=== PATIENT | female | born 1995 | race American Indian/Alaskan Native ===

== ENCOUNTER 2020-06-03 10:47 | Emergency (ER) | payer BC ==
--- NOTE | 2020-06-03 11:36 | XRay Report ---
CHEST 2 VIEWS 1120 INDICATION / CLINICAL INFORMATION: Dyspnea COMPARISON: None available. FINDINGS: SUPPORT DEVICES: None. HEART / MEDIASTINUM: No significant abnormality. LUNGS / PLEURA: Posterior costophrenic angles are not fully included on the lateral projection. Lung velazquez appear clear. No pneumothorax. ADDITIONAL FINDINGS: No significant additional findings. IMPRESSION: No significant acute abnormality Signer Name: Gino Petersen MD Signed: 06/03/2020 11:32 AM Workstation Name: [id number]
[2020-06-03 12:15] LABS: Basophils # (Auto) 0.1 K/mm3 (0.0-0.1); Basophils % (Auto) 1.5 % (0.0-1.8); Eosinophils # (Auto) 0.1 K/mm3 (0.0-0.4); Eosinophils % (Auto) 1.3 % (0.0-4.3); Lymphocytes # (Auto) 1.8 K/mm3 (1.2-5.4); Lymphocytes % (Auto) 33.2 % (13.4-35.0); Mean Corpuscular HGB Conc 29 % (30-34); Monocytes # (Auto) 0.6 K/mm3 (0.0-0.8); Monocytes % (Auto) 10.4 % (0.0-7.3); Platelet Count 428 K/mm3 (140-440); Red Blood Count 4.58 M/mm3 (3.65-5.03)
[2020-06-03 12:21] LABS: Hematocrit 27.6 % (30.3-42.9); Mean Corpuscular Volume 60 fl (79-97)
[2020-06-03 12:22] LABS: Red Cell Distribution Width 20.3 % (13.2-15.2)
[2020-06-03 12:33] LABS: Alanine Aminotransferase 43 units/L (7-56); Albumin 4.3 g/dL (3.9-5); Blood Urea Nitrogen 4 mg/dL (7-17); Calcium 9.8 mg/dL (8.4-10.2); Hemolysis Index 3
[2020-06-03 12:34] LABS: BUN/Creatinine Ratio 7
[2020-06-03] MEDS ORDERED: IBUPROFEN 600 MG TAB PO ONE (13:14)
[2020-06-03] MEDS ORDERED: ACETAMINOPHEN 325 MG TAB PO ONE (13:14)
--- NOTE | 2020-06-03 13:14 | Emergency Department Report ---
ED General Adult HPI - General Chief complaint: Dyspnea/Respdistress Stated complaint: SOB/NAUSEA/HEADACHES PUI?: Yes Time Seen by Provider: 06/03/20 12:55 Source: patient, RN notes reviewed Mode of arrival: Ambulatory Limitations: No Limitations - History of Present Illness Initial comments: The patient was evaluated in the emergency department for symptoms described in the history of present illness. He/she was evaluated in the context of the global COVID-19 pandemic, which necessitated consideration that the patient migh t be at risk for infection with the virus that causes COVID-19. Institutional protocols and algorithms that pertain to the evaluation of patients at risk for COVID-19 are in a state of rapid change based on information released by regulatory bodies including the CDC and federal and state organizations. These policies and algorithms were followed during the patient's care in the emergency department. Please note that these policies, procedures and recommendations changed on a rapid basis. The patient is a pleasant 24-year-old female. She is not known to myself previously. She reports a prior history of anemia, and is noncompliant with iron supplementation. She also reports a possible history of diabetes. The patient presents to the ER today with a complaint of nontraumatic frontal and bitemporal headache, nasal congestion, sneezing, history of shortness of breath last night, now resolved. The headache is not sudden or thunderclap in nature. The headache is not maximal in intensity. Patient taking ibuprofen 200 mg orally, as needed. There is no loss of vision, there is no sore throat, there is positive dry cough, there is no loss of taste, no loss of smell, no chest pain, no abdominal pain, at the moment, she does not have shortness of breath, she denies hematemesis, bright red blood per rectum, heavy menstruation, DVT, pulmonary embolism risk factors. She has not been entirely compliant with self-isolation and self quarantining, and occasionally, but not always, wears a mask when she is outside. Shortness of breath present last night, now resolved, and is not present at this time. -: days(s) Location: head Quality: other Consistency: other Improves with: other Worsens with: other Associated Symptoms: other - Related Data Allergies Allergy/AdvReac Type Severity Reaction Status Date / Time No Known Allergies Allergy Unverified 06/03/20 10:57 ED Review of Systems ROS: Stated complaint: SOB/NAUSEA/HEADACHES Other details as noted in HPI Constitutional: denies: fever Eyes: denies: eye discharge, vision change ENT: denies: epistaxis Respiratory: cough, shortness of breath Cardiovascular: denies: chest pain Genitourinary: denies: dysuria Musculoskeletal: denies: myalgia Neurological: headache. denies: weakness Hematological/Lymphatic: denies: easy bleeding ED Past Medical Hx - Past Medical History Previous Medical History?: Yes Hx Diabetes: Yes - Surgical History Past Surgical History?: No - Social History Smoking Status: Never Smoker Substance Use Type: None ED Physical Exam - General Limitations: No Limitations General appearance: alert, in no apparent distress - Head Head exam: Present: atraumatic, normocephalic - Eye Eye exam: Present: normal appearance, PERRL, EOMI, other (Visual acuity intact to finger counting, color perception, reading at a close distance). Absent: nystagmus - ENT ENT exam: Present: normal exam, normal orophraynx, mucous membranes moist, normal external ear exam - Neck Neck exam: Present: normal inspection, full ROM. Absent: tenderness, meningismus - Respiratory Respiratory exam: Present: normal lung sounds bilaterally. Absent: respiratory distress, wheezes, rales, rhonchi, stridor, decreased breath sounds - Cardiovascular Cardiovascular Exam: Present: regular rate, normal rhythm, normal heart sounds. Absent: bradycardia, tachycardia, irregular rhythm, systolic murmur, diastolic murmur, rubs, gallop - GI/Abdominal GI/Abdominal exam: Present: soft. Absent: distended, tenderness, guarding, rebound, rigid, pulsatile mass - Extremities Exam Extremities exam: Present: normal inspection, full ROM, other (2+ pulses noted in the bilateral upper and lower extremities. There is no palpable cord. negative Homans sign. Muscular compartments are soft. The pelvis is stable.). Absent: pedal edema, calf tenderness - Back Exam Back exam: Present: normal inspection, full ROM. Absent: tenderness, CVA tenderness (R), CVA tenderness (L), paraspinal tenderness, vertebral tenderness - Neurological Exam Neurological exam: Present: alert, oriented X3, normal gait, other (There is no facial droop. The tongue is midline. Extraocular movements are intact bilaterally. There is 5 out of 5 strength in bilateral upper and lower extremities. Sensation is intact to light touch bilateral upper and lower extremities. There is no past-pointing. There is no pronator drift. There is normal nmbs-vd-hyca. There is a normal gait.). Absent: motor sensory deficit - Psychiatric Psychiatric exam: Present: normal affect, normal mood - Skin Skin exam: Present: warm, dry, intact, normal color. Absent: rash ED Course Vital Signs 06/03/20 06/03/20 10:54 13:34 Temperature 99.9 F H Pulse Rate 112 H 88 Respiratory 18 18 Rate Blood Pressure 153/94 Blood Pressure 130/70 [Left] O2 Sat by Pulse 100 100 Oximetry ED Medical Decision Making - Lab Data Result diagrams: 06/03/20 11:47 06/03/20 11:47 Vital Signs 06/03/20 06/03/20 10:54 13:34 Temperature 99.9 F H Pulse Rate 112 H 88 Respiratory 18 18 Rate Blood Pressure 153/94 Blood Pressure 130/70 [Left] O2 Sat by Pulse 100 100 Oximetry Lab Results 06/03/20 06/03/20 Range/Units 11:47 11:47 WBC 5.4 (4.5-11.0) K/mm3 RBC 4.58 (3.65-5.03) M/mm3 Hgb 8.0 L (10.1-14.3) gm/dl Hct 27.6 L (30.3-42.9) % MCV 60 L (79-97) fl MCH 18 L (28-32) pg MCHC 29 L (30-34) % RDW 20.3 H (13.2-15.2) % Plt Count 428 (140-440) K/mm3 Lymph % (Auto) 33.2 (13.4-35.0) % [place] % (Auto) 10.4 H (0.0-7.3) % Eos % (Auto) 1.3 (0.0-4.3) % Baso % (Auto) 1.5 (0.0-1.8) % Lymph # (Auto) 1.8 (1.2-5.4) K/mm3 [place] # (Auto) 0.6 (0.0-0.8) K/mm3 Eos # (Auto) 0.1 (0.0-0.4) K/mm3 Baso # (Auto) 0.1 (0.0-0.1) K/mm3 Seg Neutrophils % 53.6 (40.0-70.0) % Seg Neutrophils # 2.9 (1.8-7.7) K/mm3 Sodium 137 (137-145) mmol/L Potassium 4.5 (3.6-5.0) mmol/L Chloride 100.0 (98-107) mmol/L Carbon Dioxide 26 (22-30) mmol/L Anion Gap 16 mmol/L BUN 4 L (7-17) mg/dL Creatinine 0.6 (0.6-1.2) mg/dL Estimated GFR > 60 ml/min BUN/Creatinine Ratio 7 % Glucose 110 H (65-100) mg/dL Calcium 9.8 (8.4-10.2) mg/dL Total Bilirubin 0.40 (0.1-1.2) mg/dL AST 31 (5-40) units/L ALT 43 (7-56) units/L Alkaline Phosphatase 85 (35-129) units/L Total Protein 7.4 (6.3-8.2) g/dL Albumin 4.3 (3.9-5) g/dL Albumin/Globulin Ratio 1.4 % - Radiology Data Radiology results: report reviewed, image reviewed Print Report Referring Physician: ELISA KURTZ Patient Name: SILVER REYNOSO Date of : 1995 Sex: Female Report Date: 2020-06-03 Report Status: [place] [address] XRay Report Signed Patient: SILVER REYNOSO MR#: [id number] : 1995 Acct:[id number] Age/Sex: 24 / F ADM Date: 06/03/20 Loc: ED Attending Dr: Ordering Physician: ELISA KURTZ MD Date of Service: 06/03/20 Procedure(s): XR chest routine 2V Accession Number(s): [id number] cc: ED MD JERARDO Fluoro Time In Minutes: CHEST 2 VIEWS 1120 INDICATION / CLINICAL INFORMATION: Dyspnea COMPARISON: None available. FINDINGS: SUPPORT DEVICES: None. HEART / MEDIASTINUM: No significant abnormality. LUNGS / PLEURA: Posterior costophrenic angles are not fully included on the lateral projection. Lung velazquez appear clear. No pneumothorax. ADDITIONAL FINDINGS: No significant additional findings. IMPRESSION: No significant acute abnormality Signer Name: Gino Petersen MD Signed: 06/03/2020 11:32 AM Workstation Name: [id number] Transcribed By: GJ Dictated By: Gino Petersen MD Electronically Authenticated By: Gino Petersen MD Signed Date/Time: 06/03/20 113 DD/ 1131 TD/TT: - Medical Decision Making Differential diagnosis, include but not limited to: Sinusitis, allergies, rhinitis, migraine headache, tension headache, cluster headache, viral syndrome, COVID-19 Assessment and plan: 24-year-old female, with low-grade temperature, resolved elevated blood pressure, resolved tachycardia, who appears to be in no acute distress, walking with a steady gait, who is not currently tachycardic, tachypneic or hypoxic, who denies DVT, pulmonary embolism risk factors, who is low risk by Wells criteria, with a GCS of 15, NIH score of 0, no meningeal signs, with resolved shortness of breath, history of headache, runny nose, and sneezing. Patient states that she is not , and reports that she has not delivered or given in the past 6 weeks. Patient denies urinary symptoms, and reports a chronic history of anemia, and is noncompliant with outpatient therapy. Patient medicated appropriately for symptom control, other laboratory studies were sent prior to my personal evaluation, are fairly unremarkable except for asymptomatic anemia. 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 Patient verbalizes understanding to discharge instructions, and endorses that she was reliable to return with any change in her clinical condition patient endorses that she will take her medication at home for her chronic anemia after discussion. She indicates that she does not want an iron sulfate prescription in the emergency room. Critical care attestation.: If time is entered above; I have spent that time in minutes in the direct care of this critically ill patient, excluding procedure time. ED Disposition Clinical Impression: Suspected 2019 novel coronavirus infection Anemia Qualifiers: Anemia type: unspecified type Qualified Code(s): D64.9 - Anemia, unspecified Disposition: DC-01 TO HOME OR SELFCARE Is pt being admited?: No Does the pt Need Aspirin: No Condition: Stable Instructions: Anemia (ED), COVID-19 Additional Instructions: As we discussed, the patient most likely has novel coronavirus/COVID. the symptoms of COVID will typically persist 10 to 14 days. There is no cure at this time for COVID. Please make certain to self isolate and self quarantine, follow-up with an outpatient primary care doctor within the next 3 to 5 days, wash hands with soap and water frequently, thoroughly and often, patient may take the prescribed medications as needed and directed. Advance diet and drink plenty of fluids as tolerated. Avoid interactions with the very elderly, very young, and those with chronic medical conditions. Return to the emergency room right away with new pain, worsening pain, migration of pain, projectile vomiting, change in mental status, confusion, inability to tolerate liquid feeds, new, worsened or different symptoms not present on the initial emergency room evaluation. Referrals: ELIANA POLANCO MD [Staff Physician] - 3-5 Days JUANITA LOUISE MD [Staff Physician] - 3-5 Days Forms: Work/School Release Form(ED)
[2020-06-03 13:36] VITALS: BP 130/70
== END 2020-06-03 14:22 | disposition home or self-care (01) ==
LOC: ED 10:47
DX: D64.9 Anemia, unspecified (principal); Z20.828 Contact with and (suspected) exposure to other viral communicable diseases; E11.9 Type 2 diabetes mellitus without complications
CPT/HCPCS: 36415; 71046; 80053; 85025; 99283

== ENCOUNTER 2020-10-03 12:13 | Outpatient (CLI) | payer BC ==
[2020-10-03 13:14] LABS: Chol/HDL Ratio 4.12 %
[2020-10-03 13:25] LABS: Hepatitis B Surface Antigen Non-Reactive (Negative); Hepatitis C Virus Antibody Non-Reactive (NonReactive)
[2020-10-05 15:20] LABS: HSV 1 IgG Type-Specific Ab 47.3 Index (<0.90); HSV 2 IgG Type-Specific Ab 2.22 Index (<0.90)
== END 2020-10-03 12:14 | disposition home or self-care (01) ==
LOC: LAB 12:13
PROVIDERS: ATTEND Advanced Practice Midwife
DX: Z01.419 Encounter for gynecological examination (general) (routine) without abnormal findings (principal)
CPT/HCPCS: 36415; 80061; 80074; 86592; 86689; 86695; 86696

== ENCOUNTER 2020-10-13 10:48 | Outpatient (CLI) | payer BC | END 2020-10-13 10:49 | disposition home or self-care (01) | LOC: LAB 10:48 | PROVIDERS: ATTEND Specialist | DX: E28.2 Polycystic ovarian syndrome (principal) | CPT/HCPCS: 36415; 83001; 84402 ==

== ENCOUNTER 2021-01-11 09:10 | Outpatient (CLI) | payer BC ==
[2021-01-11 10:50] LABS: Basophils % (Auto) 0.6 % (0.0-1.8); Eosinophils # (Auto) 0.2 K/mm3 (0.0-0.4); Eosinophils % (Auto) 3.7 % (0.0-4.3); Hematocrit 26.9 % (30.3-42.9); Hemoglobin 8.1 gm/dl (10.1-14.3); Lymphocytes # (Auto) 1.6 K/mm3 (1.2-5.4); Lymphocytes % (Auto) 30.6 % (13.4-35.0); Mean Corpuscular HGB Conc 30 % (30-34); Monocytes # (Auto) 0.4 K/mm3 (0.0-0.8); Monocytes % (Auto) 8.7 % (0.0-7.3); Platelet Count 425 K/mm3 (140-440); Red Blood Count 4.58 M/mm3 (3.65-5.03); Red Cell Distribution Width 19.5 % (13.2-15.2)
[2021-01-11 10:55] LABS: Mean Corpuscular Volume 59 fl (79-97)
[2021-01-11 11:06] LABS: Chol/HDL Ratio 4.32 %
== END 2021-01-11 09:11 | disposition home or self-care (01) ==
LOC: LAB 09:10
PROVIDERS: ATTEND Specialist
DX: E11.65 Type 2 diabetes mellitus with hyperglycemia (principal); E28.2 Polycystic ovarian syndrome
CPT/HCPCS: 36415; 80061; 82533; 82627; 82670; 82947; 83001; 83036; 84144; 84146; 84402; 85025

== ENCOUNTER 2021-05-31 15:32 | Outpatient (CLI) | payer BC ==
[2021-05-31 17:12] LABS: Basophils % (Auto) 0.7 % (0.0-1.8); Eosinophils # (Auto) 0.1 K/mm3 (0.0-0.4); Eosinophils % (Auto) 1.4 % (0.0-4.3); Hematocrit 27.6 % (30.3-42.9); Hemoglobin 8.3 gm/dl (10.1-14.3); Lymphocytes # (Auto) 2.4 K/mm3 (1.2-5.4); Lymphocytes % (Auto) 45.8 % (13.4-35.0); Mean Corpuscular HGB Conc 30 % (30-34); Monocytes # (Auto) 0.4 K/mm3 (0.0-0.8); Monocytes % (Auto) 7.5 % (0.0-7.3); Platelet Count 379 K/mm3 (140-440); Red Blood Count 4.48 M/mm3 (3.65-5.03)
[2021-05-31 17:13] LABS: Mean Corpuscular Volume 62 fl (79-97); Red Cell Distribution Width 21.1 % (13.2-15.2)
--- NOTE | 2021-05-31 18:01 | Ultrasound Report ---
ULTRASOUND PELVIS INDICATION / CLINICAL INFORMATION: IRREGULAR MENSTRUAL CYCLE. TECHNIQUE: Transabdominal and Transvaginal. Duplex Color Doppler used: Yes. COMPARISON: None available FINDINGS: UTERUS: - Appearance: No significant abnormality. - Size (cm): 7.9 x 3.9 x 4.2 - Endometrial Complex (if present): No significant abnormality.. Thickness in cm (if measured) = 0.7 - Mass or cyst: None. - Additional findings: None. RIGHT ADNEXA: Complex, echogenic right ovarian cyst measuring 3.1 x 2.3 x 2.6 cm. Normal color Dopple r blood flow. LEFT ADNEXA: No significant ovarian cyst or mass. Normal color Doppler blood flow. URINARY BLADDER: No significant abnormality. FREE FLUID: None. ADDITIONAL FINDINGS: None. IMPRESSION: 1. 3.1 cm hemorrhagic right ovarian cyst. No routine follow-up is needed. 2. No sonographic abnormality of the uterus. Signer Name: Maverick Samuel MD Signed: 05/31/2021 5:56 PM Workstation Name: [id number]
== END 2021-05-31 15:33 | disposition home or self-care (01) ==
LOC: US 15:32
PROVIDERS: ATTEND Obstetrics & Gynecology
DX: N83.201 Unspecified ovarian cyst, right side (principal); N92.6 Irregular menstruation, unspecified
CPT/HCPCS: 36415; 76830; 76856; 83001; 83036; 84146; 84443; 84702; 85025